=== PATIENT | male | born 1990 | race Caucasian/White ===

== ENCOUNTER 2018-10-12 09:09 | Emergency (ER) | payer OTHER, SELFPAY ==
[2018-10-12 09:22] VITALS: BP 135/80; PULSE 96; RESP 18; TEMP 37.4; O2SAT 98
[2018-10-12 10:15] LABS: Influenza A and B by PCR Rapid Negative (Negative)
--- NOTE | 2018-10-12 11:08 | ED.URI ---
HPI - URI/Sore Throat General Chief Complaint: Upper Respiratory Symptoms Stated Complaint: FEVER/COLD/COUGH/SORE THROAT Time Seen by Provider: 10/12/18 10:52 Source: patient Mode of arrival: ambulatory Limitations: no limitations History of Present Illness HPI Narrative: Otherwise healthy 28-year-old male here for evaluation of sore throat and sinus congestion. He states this been going on for the past several weeks. No fevers. The sore throat has improved somewhat. No rashes. No recent travel. Related Data Allergies Allergy/AdvReac Type Severity Reaction Status Date / Time No Known Drug Allergies Allergy Verified 10/12/18 09:22 Review of Systems Constitutional Reports fever(s) ENT Ears, Nose, Mouth, and Throat: Reports sinus pressure and Reports sore throat Respiratory Reports cough Gastrointestinal Gastrointestinal: Denies abdominal pain, Denies nausea and Denies vomiting Integumentary/Breasts Denies rash Allergic/Immunologic Denies urticaria PFSH Medical History Healthy adult (Acute) Surgical History No pertinent past surgical history (Acute) Social History Smoking Status: Never smoker Social History Smoking Status: Never smoker Exam Initial Vital Signs Initial Vital Signs: Vital Signs Temperature 99.4 F 10/12/18 09:22 Pulse Rate 96 H 10/12/18 09:22 Respiratory Rate 18 10/12/18 09:22 Blood Pressure 135/80 10/12/18 09:22 Pulse Oximetry 98 10/12/18 09:22 Const General: cooperative, healthy appearing, comfortable, well developed, well groomed and No acute distress Orientation: alert, awake and oriented x3 HENMT Head: normal to inspection and normocephalic Resp Effort & Inspection: normal respiratory effort Auscultation: clear to auscultation bilaterally Cardio Rate: regular rate Rhythm: regular rhythm Pulses: radial pulses present GI Inspection: non-distended Palpation: soft Skin Lesions: no lesions Rashes: no rashes Neuro General: alert, awake and oriented x3 Extrem General: normal to inspection and capillary refill normal Psych Appearance: grossly normal and well kempt Course Orders Ordered: ED Orders 10/12/18 09:25 FLU A and B [Influenza A and B by PCR Rapid] Stat Vital Signs - 8 hr 10/12/18 09:22 10/12/18 11:25 Temperature 99.4 F 99.2 F Pulse Rate 96 H 88 Respiratory Rate 18 18 Blood Pressure 135/80 Blood Pressure [Left Arm] 120/70 Pulse Oximetry 98 97 MDM - URI/Sore Throat Lab Data Attestation: I reviewed the patient's lab results. Lab Results 10/12/18 Range/Units 09:25 Influenza A & B (PCR) Negative (Negative) MDM Narrative Medical decision making narrative: Not toxic appearing. No indication for antibiotics. Suspect viral URI. We did discuss decongestants. Did discuss the use of Tylenol for any fevers. Patient is given return precautions. He expressed understanding and agreement with plan. Discharge Plan Departure Patient Disposition: Home Clinical Impression: Upper respiratory infection Qualifiers: URI type: unspecified URI Qualified Code(s): J06.9 - Acute upper respiratory infection, unspecified Discharge Date/Time: 10/12/18 11:27 Interventions: ED Discharge Assessment Last Done: 10/12/18 11:27 Instructions: DI for Viral Upper Respiratory Infection -- Adult Activity Restrictions/Additional Instructions: I recommend that you take a decongestant such as Claritin or Edwige or Zyrtec. You could also take Tylenol and Motrin for any body aches or fevers. Increase her fluid intake. Call your primary care doctor for a follow-up. Return to the emergency department for any new or worsening symptoms
[2018-10-12 11:25] VITALS: BP 120/70; PULSE 88; RESP 18; TEMP 37.3; O2SAT 97
== END 2018-10-12 11:27 | disposition home or self-care (01) ==
PROVIDERS: Emergency Provider Emergency Medicine
DX: J06.9 Acute upper respiratory infection, unspecified (principal)
CPT/HCPCS: 87400; 99282; 99283

== ENCOUNTER 2018-12-29 16:48 | Emergency (ER) | payer OTHER, SELFPAY ==
[2018-12-29 16:51] VITALS: BP 143/88; PULSE 89; RESP 18; TEMP 37.6; O2SAT 98
[2018-12-29 17:48] VITALS: BP 132/81; PULSE 71; RESP 16; O2SAT 99
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
== END 2018-12-29 17:48 | disposition home or self-care (01) ==
PROVIDERS: Emergency Provider Emergency Medicine
DX: T30.0 Burn of unspecified body region, unspecified degree (principal); W86.8XXA Exposure to other electric current, initial encounter; Y99.0 Civilian activity done for income or pay
CPT/HCPCS: 93005; 93010; 99282; 99283